=== PATIENT | female | born 1980 | race African-American/Black ===

== ENCOUNTER 2022-08-11 20:23 | Emergency (ER) | payer SELFPAY ==
[2022-08-11 20:28] VITALS: BMI 20.7
[2022-08-11] MEDS ORDERED: SODIUM CHLORIDE 0.9% 500 ML INFUS.BAG IV ONE (21:25)
[2022-08-11] MEDS ORDERED: ONDANSETRON 4 MG/2 ML VIAL IVPUSH ONE (21:26)
[2022-08-11] MEDS ORDERED: ACETAMINOPHEN 1000 MG/100 ML BAG IVPB ONE (21:44)
[2022-08-11] MEDS ORDERED: ONDANSETRON 4 MG/2 ML VIAL ONE (22:12)
[2022-08-11] MEDS ORDERED: ACETAMINOPHEN INJECTION 100 ML IVPB ONE (22:12)
[2022-08-11 22:36] LABS: EOS % 0.9 % (0-4.5); HEMATOCRIT 42.9 % (32.4-45.2); HEMOGLOBIN 14.5 GM/dL (10.7-15.3); LYMPH % 16.9 % (8-40); MCH 34.6 pg (25.7-33.7); MCHC 33.9 g/dl (32.0-36.0); MEAN CELL VOLUME 102.2 fl (80-96); MEAN PLT VOLUME 6.9 fl (7.5-11.1); MONO % 7.9 % (3.8-10.2); NEUT % 73.3 % (42.8-82.8); PLATELET COUNT 316 10^3/uL (134-434); RDW 15.9 % (11.6-15.6); WHITE BLOOD COUNT 8.1 K/mm3 (4.0-10.0)
[2022-08-11 22:51] LABS: CALCIUM 9.5 mg/dL (8.5-10.1)
[2022-08-11 22:53] LABS: ALBUMIN 4.4 g/dl (3.4-5.0); BLOOD UREA NITROGEN 8.5 mg/dL (7-18)
[2022-08-11 22:56] LABS: BILIRUBIN,TOTAL 0.6 mg/dL (0.2-1); CREATININE 1.2 mg/dL (0.55-1.3)
[2022-08-11] MEDS ORDERED: DEXTROSE 5%-LACTATED RINGERS 1,000 ML IV SCH (23:30)
[2022-08-12 01:27] VITALS: BP 159/118; PULSE 85; RESP 16; TEMP 97.3
[2022-08-12 01:34] LABS: MAGNESIUM 1.9 mg/dL (1.8-2.4)
[2022-08-12 01:38] LABS: PHOSPHOROUS 2.9 mg/dL (2.5-4.9)
== END 2022-08-12 03:14 | disposition home or self-care (01) ==
LOC: JER 20:23
PROC: 3E033GC Introduction of Other Therapeutic Substance into Peripheral Vein, Percutaneous Approach (ICD-10-PCS; principal; 2022-08-11)
DX: R10.84 Generalized abdominal pain (principal)
CPT/HCPCS: 36415; 71046-TC-FY; 74177-TC; 80053; 83690; 83735; 84100; 84703; 85025; 93005; 93010; 99285-25; C9803-CS; Q9967; U0003; U0005

== ENCOUNTER 2024-09-30 19:44 | Inpatient (IN) | payer OTHER ==
[2024-09-30 20:26] VITALS: BMI 23.3
[2024-09-30] MEDS ORDERED: BISMUTH SUBSALICYLATE 524 MG/30 ML PO PRN (20:42)
[2024-09-30] MEDS ORDERED: BENZONATATE 200 MG CAPSULE PO PRN (20:42)
[2024-09-30] MEDS ORDERED: IBUPROFEN 400 MG TABLET (FP) PO PRN (20:42)
[2024-09-30] MEDS ORDERED: guaiFENesin 600 MG TABLET.ER (FP) PO PRN (20:42)
[2024-09-30] MEDS ORDERED: P-EPHED 60MG/TRIPROLIDI 2.5MG TABLET PO PRN (20:42)
[2024-09-30] MEDS ORDERED: MAGNESIUM HYDROX 2400MG/30ML ORAL SUSPENSION 30 ML CUP PO PRN (20:42)
[2024-09-30] MEDS ORDERED: ACETAMINOPHEN 325 MG TABLET (FP) PO PRN (20:42)
[2024-09-30] MEDS ORDERED: ONDANSETRON *ODT* 4 MG TABLET SL PRN (20:42)
[2024-09-30] MEDS ORDERED: LOPERAMIDE HCL 2 MG CAPSULE PO PRN (20:42)
[2024-09-30] MEDS ORDERED: POLYETHYLENE GLYCOL (HEALTHYLAX) 3350 17 GM PACKET PO PRN (20:42)
[2024-09-30] MEDS ORDERED: DICYCLOMINE HCL 10 MG CAPSULE PO PRN (20:42)
[2024-09-30] MEDS ORDERED: MAG HYDROX/AL HYDROX/SIMETH 30 ML UNIT-DOSE CUP PO PRN (20:42)
[2024-09-30] MEDS ORDERED: NICOTINE POLACRILEX 2 MG GUM BUC PRN (20:42)
[2024-09-30] MEDS ORDERED: MELATONIN 5 MG TABLETS ONE (22:10)
[2024-09-30] MEDS ORDERED: diazePAM 5 MG TABLET ONE (22:10)
[2024-09-30] MEDS: MELATONIN 5 MG TABLETS PO SCH (22:12)
[2024-09-30] MEDS: THIAMINE 100 MG TABLET PO SCH (22:12)
[2024-09-30] MEDS: diazePAM 5 MG TABLET PO SCH (22:14)
[2024-10-01] MEDS: PRENATAL VITAMINS W/ FOLIC ACID TABLET (FP) PO SCH (10:26)
[2024-10-01] MEDS: amLODIPine BESYLATE 10 MG TABLET (FP) PO SCH (11:19)
[2024-10-01 15:48] LABS: CHLORIDE 102 mmol/L (98-107); POTASSIUM 3.5 mmol/L (3.5-5.1); SODIUM 138 mmol/L (136-145)
[2024-10-01 15:57] LABS: ANION GAP 9 mmol/L (4-13); CO2 27 mmol/L (21-32)
[2024-10-01 15:59] LABS: ALBUMIN 3.8 g/dl (3.4-5.0); BLOOD UREA NITROGEN 12.3 mg/dL (7-18); CALCIUM 9.3 mg/dL (8.5-10.1); GLUCOSE,RANDOM 129 mg/dL (74-106)
[2024-10-01 16:00] LABS: BILIRUBIN,TOTAL 0.5 mg/dL (0.2-1); TOT PROT 7.5 g/dl (6.4-8.2)
[2024-10-01 16:01] LABS: ALK PHOS 60 U/L (45-117); CREATININE 0.9 mg/dL (0.55-1.3); SGOT/AST 40 U/L (15-37)
[2024-10-01 16:03] LABS: HEMATOCRIT 35.3 % (32.4-45.2); HEMOGLOBIN 12.2 GM/dL (10.7-15.3); MCH 36.7 pg (25.7-33.7); MCHC 34.7 g/dl (32.0-36.0); MEAN CELL VOLUME 105.6 fl (80-96); PLATELET COUNT 329 10^3/uL (134-434); RBC 3.34 M/mm3 (3.60-5.2); RDW 15.6 % (11.6-15.6); WHITE BLOOD COUNT 6.9 K/mm3 (4.0-10.0)
[2024-10-01 16:13] LABS: SGPT/ALT 19 U/L (13-61)
[2024-10-01 16:33] LABS: HIV INTERPRETATION NEGATIVE (NEGATIVE)
[2024-10-01] MEDS: cloNIDine HCL 0.1 MG TABLET PO PRN (17:41)
[2024-10-01] MEDS: hydrOXYzine PAMOATE 25 MG CAPSULE (FP) PO PRN (17:41)
[2024-10-01] MEDS: IBUPROFEN 600 MG TABLET (FP) PO PRN (17:41)
[2024-10-01] MEDS: METHOCARBAMOL 500 MG TABLET PO PRN (22:20)
[2024-10-02] MEDS: diazePAM 5 MG TABLET PO SCH (05:46)
[2024-10-02] MEDS: METOPROLOL TARTRATE 25 MG TABLET (FP) PO ONE (14:10)
[2024-10-02] MEDS: diazePAM 5 MG TABLET PO PRN (17:53)
[2024-10-02] MEDS: METOPROLOL TARTRATE 25 MG TABLET (FP) PO SCH (22:46)
[2024-10-03] MEDS: BENZOCAINE/MENTHOL (CHLORASEPTIC ) LOZENGE MM PRN (01:05)
[2024-10-03] MEDS: diazePAM 5 MG TABLET PO SCH (05:54)
[2024-10-03] MEDS ORDERED: NALOXONE (NYS OPIOID OVERDOSE PROGRAM) 4 MG/0.1 ML SPRAY NS SCH (15:15)
[2024-10-03] MEDS: NICOTINE POLACRILEX 2 MG LOZENGE BC PRN (22:40)
[2024-10-04] MEDS: diazePAM 5 MG TABLET PO ONE (05:52)
[2024-10-04 09:07] VITALS: BP 129/99; PULSE 88; RESP 16; TEMP 98.6
== END 2024-10-04 10:31 | disposition home or self-care (01) | DRG 775 ==
LOC: YASAS 19:44 → Y6N 21:58
PROVIDERS: ADMIT Allergy & Immunology; ATTEND Surgery
PROC: HZ2ZZZZ Detoxification Services for Substance Abuse Treatment (ICD-10-PCS; principal; 2024-09-30)
DX: F10.230 Alcohol dependence with withdrawal, uncomplicated (principal); F10.280 Alcohol dependence with alcohol-induced anxiety disorder; F10.282 Alcohol dependence with alcohol-induced sleep disorder; F10.24 Alcohol dependence with alcohol-induced mood disorder; F17.290 Nicotine dependence, other tobacco product, uncomplicated; R03.0 Elevated blood-pressure reading, without diagnosis of hypertension; S02.5XXA Fracture of tooth (traumatic), initial encounter for closed fracture; X58.XXXA Exposure to other specified factors, initial encounter; Y93.9 Activity, unspecified; Y92.9 Unspecified place or not applicable; Z56.0 Unemployment, unspecified; Z59.00 Homelessness unspecified
CPT/HCPCS: 36415; 80053; 80307; 85027; 86780; 86803; 87389; 93005; 93010